=== PATIENT | male | born 1970 | race Caucasian/White ===

== ENCOUNTER 2016-05-01 14:33 | Outpatient (CLI) | payer OTHER, BC ==
[2016-04-24 21:36] VITALS: O2SAT 97
== END 2016-05-01 14:34 | disposition home or self-care (01) | DRG 561 ==
LOC: CONVCARE 14:33
PROVIDERS: ATTEND Orthopaedic Surgery
DX: S62.356D Nondisplaced fracture of shaft of fifth metacarpal bone, right hand, subsequent encounter for fracture with routine healing (principal)
CPT/HCPCS: 73130

== ENCOUNTER 2016-06-13 07:35 | Outpatient (CLI) | payer BC, OTHER ==
[2016-04-24 21:36] VITALS: O2SAT 97
== END 2016-06-13 07:36 | disposition home or self-care (01) | DRG 561 ==
LOC: CONVCARE 07:35
PROVIDERS: ATTEND Orthopaedic Surgery
DX: S62.326D Displaced fracture of shaft of fifth metacarpal bone, right hand, subsequent encounter for fracture with routine healing (principal)
CPT/HCPCS: 73130

== ENCOUNTER 2017-08-28 14:42 | Emergency (ER) | payer OTHER, BC ==
[2017-08-28 14:42] VITALS: O2SAT 97
[2017-08-28] MEDS ORDERED: LIDOCAINE HCL 1% 50 MG/5 ML SOL INFIL ONE (14:43)
[2017-08-28] MEDS ORDERED: LIDOCAINE HCL 1% MPF SOL ONE (14:44)
[2017-08-28] MEDS ORDERED: TDAP VACCINE 0.5 ML SUS IM ONE ×2 (14:59→15:01)
[2017-08-28 15:09] VITALS: BP 142/78; PULSE 60; RESP 20; TEMP 96.8
[2017-08-28] MEDS ORDERED: BACITRACIN 500 U/GM OIN TOP ONE ×2 (15:21→15:23)
== END 2017-08-28 15:29 | disposition home or self-care (01) | DRG 605 ==
LOC: ED 14:42
DX: S61.012A Laceration without foreign body of left thumb without damage to nail, initial encounter (principal)
CPT/HCPCS: 90715; 99283; A9270-GY; J2001